=== PATIENT | male | born 1955 | race Caucasian/White ===

== ENCOUNTER → 2017-04-11 | Outpatient (CLI) | payer OTHER ==
--- NOTE | 2017-04-11 13:39 | RADRPT ---
PROCEDURE: XR Pelvis and Hips. CLINICAL INDICATION: Pelvic pain. Bilateral hip pain. TECHNIQUE: Five views. Frontal pelvis. Frontal and lateral right hip. Frontal and lateral left hip. COMPARISON: No prior studies are available for comparison. FINDINGS: There is no fracture or dislocation. The soft tissues are normal. There are degenerative changes of both hips with joint space narrowing, osteophytes, and subarticula r sclerosis. Left is worse than right. There is no lytic or blastic lesion. There is no radiopaque foreign body. The upper pelvis is not included on the frontal view. IMPRESSION: 1. Moderate degenerative changes of both hips with left worse than right. RPTAT: QQ .Cody Muniz MD, MD Date Time Electronically viewed and signed by .Cody Muniz MD, on 04/11/2017 13:38 .R/
== END | disposition home or self-care (01) ==
LOC: HKI 08:22
PROVIDERS: ATTEND Orthopaedic Surgery
DX: M16.0 Bilateral primary osteoarthritis of hip (principal)
CPT/HCPCS: 73523; G0463